=== PATIENT | male | born 1945 | race Two or more races ===

== ENCOUNTER 2025-03-24 10:42 | Emergency (ER) | payer BC ==
[~2025-03-24] VITALS: Ht 167.6 cm; Wt 78.0 kg
[2025-03-24 10:49] VITALS: TEMP 36.8; O2SAT 99
[2025-03-24] MEDS ORDERED: ACET-2708 MT (13:26)
[2025-03-24 14:11] VITALS: BP 128/74; PULSE 89; RESP 16; O2SAT 100
== END 2025-03-24 14:15 | disposition home or self-care (01) ==
LOC: ER 10:42
DX: M79.605 Pain in left leg (principal); W22.8XXA Striking against or struck by other objects, initial encounter; Y93.89 Activity, other specified; Y92.89 Other specified places as the place of occurrence of the external cause; Y99.8 Other external cause status
CPT/HCPCS: 93971; 99284